=== PATIENT | male | born 1975 | race Caucasian/White ===

== ENCOUNTER 2018-06-04 16:51 | Inpatient (IN) | payer MEDICAID ==
[~2018-06-04] VITALS: Ht 175.3 cm; Wt 89.9 kg
[2018-06-05] MEDS: ZOLPIDEM TARTRATE 10 MG TABLET PO PRN ×2 (00:21→20:22)
[2018-06-05] MEDS: HALOPERIDOL 5 MG TABLET PO PRN ×2 (00:21→16:48)
[2018-06-05] MEDS: LORazepam 2 MG TABLET PO PRN ×3 (00:21→16:48)
[2018-06-05 00:46] VITALS: BP 102/76
[2018-06-05 08:06] VITALS: BP 106/72
[2018-06-05 08:31] LABS: BASOPHILS % (AUTO) 0.4 % (0.0-2.0); HEMATOCRIT 49.1 % (41-53); HEMOGLOBIN 17.4 g/dL (13.5-17.5); LYMPHOCYTES # (AUTO) 1.5 K/uL (1.0-4.8); LYMPHOCYTES % (AUTO) 30.7 % (22.0-44.0); MEAN CORPUSCULAR HEMOGLOBIN 33.8 pg (26.0-34.0); MEAN CORPUSCULAR HGB CONC 35.5 G/dL (31.0-37.0); MEAN CORPUSCULAR VOLUME 95 fL (80-100); MONOCYTES # (AUTO) 0.4 K/uL (0.1-1.0); MONOCYTES % (AUTO) 8.9 % (2.0-9.0); NEUTROPHILS # (AUTO) 2.8 K/uL (1.8-7.7); PLATELET COUNT (AUTO) 160 K/uL (150-450); RED BLOOD CELL COUNT(AUTO) 5.15 MIL/uL (4.50-5.90); RED CELL DISTRIBUTION WIDTH 12.3 % (11.5-14.5)
[2018-06-05 08:49] LABS: HEMOGLOBIN A1C 4.9 % (4.5-6.2)
[2018-06-05 09:06] LABS: ALANINE AMINOTRANSFERASE 29 U/L (12-78); ALKALINE PHOSPHATASE 76 U/L (46-116); ANION GAP 9 mmol/L (8-16); ASPARTATE AMINOTRANSFERASE 17 U/L (15-37); BILIRUBIN,TOTAL 0.5 mg/dL (0.1-1.0); CALCIUM, TOTAL 8.6 mg/dL (8.8-10.5); CARBON DIOXIDE 27 mmol/L (22-29); CHLORIDE 108 mmol/L (98-107); CHOL/HDL RATIO 6.1 (4.2-7.3); CHOLESTEROL 196 mg/dL (131-200); CREATININE 1.13 mg/dL (0.60-1.30); FREE T4 (FREE THYROXINE) 0.81 ng/dL (0.76-1.46); GLOMERULAR FILTR. RATE CALC > 60 mL/min (>60); GLUCOSE,RANDOM 92 mg/dL (70-110); HDL CHOLESTEROL 32 mg/dL (40-60); LDL CHOL (CALC.) 145 mg/dL (0-130); POTASSIUM 4.1 mmol/L (3.5-5.1); SODIUM SERUM 144 mmol/L (136-145); THYROID STIMULATING HORMONE 1.17 uIU/mL (0.36-3.74); TOTAL PROTEIN, SERUM 6.9 g/dL (6.4-8.2); TRIGLYCERIDES 94 mg/dL (15-150); UREA NITROGEN, BLOOD 22 mg/dL (7-18)
[2018-06-05 16:00] VITALS: BP 107/63
[2018-06-05] MEDS ORDERED: OLAN7.5T2 PO (17:09)
[2018-06-05] MEDS ORDERED: TOPI100T37 PO (17:09)
[2018-06-05] MEDS ORDERED: VENL-68 PO (17:09)
[2018-06-05] MEDS ORDERED: BUSP15 PO (17:09)
[2018-06-05] MEDS ORDERED: OMEPRAZOLE 20 MG CAPSULE PO PRN (20:00)
[2018-06-05] MEDS ORDERED: BENZOCAINE/MENTHOL LOZENGE MM PRN (20:00)
[2018-06-05] MEDS ORDERED: PETROLATUM,WHITE 71 GM JELLY TP PRN (20:00)
[2018-06-05] MEDS ORDERED: MAG HYDROX/AL HYDROX/SIMETH ES 30 ML SUSPENSION UDCUP PO PRN (20:00)
[2018-06-05] MEDS ORDERED: ALBUTEROL SULFATE HFA 90 MCG/PUFF 8 GM INHALER IH PRN (20:00)
[2018-06-05] MEDS ORDERED: IBUPROFEN 600 MG TABLET PO PRN (20:00)
[2018-06-05] MEDS ORDERED: BACITRACIN 28.4 GM OINTMENT TP PRN (20:00)
[2018-06-05] MEDS ORDERED: CloNIDine HCL 0.1 MG TABLET PO PRN (20:00)
[2018-06-05] MEDS ORDERED: DOCUSATE SODIUM 100 MG CAPSULE PO PRN (20:00)
[2018-06-05] MEDS ORDERED: MAGNESIUM HYDROXIDE SUSPENSION 30 ML UDCUP PO PRN (20:00)
[2018-06-05] MEDS ORDERED: ONDANSETRON HCL 4 MG TABLET PO PRN (20:00)
[2018-06-05] MEDS ORDERED: LOPERAMIDE HCL 2 MG CAPSULE PO PRN (20:00)
[2018-06-05] MEDS ORDERED: ACETAMINOPHEN 325 MG TABLET PO PRN (20:00)
[2018-06-05] MEDS ORDERED: OLANZapine 7.5 MG TABLET PO SCH (21:00)
[2018-06-06 06:21] VITALS: BP 112/72
[2018-06-06] MEDS: LORazepam 2 MG TABLET PO PRN ×4 (07:01→20:55)
[2018-06-06] MEDS: HALOPERIDOL 5 MG TABLET PO PRN ×2 (07:01→16:49)
[2018-06-06 09:02] VITALS: BP 93/63
[2018-06-06] MEDS: BusPIRone HCL 15 MG TABLET PO SCH (16:49)
[2018-06-06 17:16] VITALS: BP 108/66
[2018-06-06] MEDS: ZOLPIDEM TARTRATE 10 MG TABLET PO PRN (20:55)
[2018-06-06] MEDS: TOPIRAMATE 100 MG TABLET PO SCH (20:55)
[2018-06-06] MEDS: OLANZapine 7.5 MG TABLET PO SCH (20:55)
[2018-06-07 05:51] VITALS: BP 103/62
[2018-06-07 08:06] VITALS: BP 101/61
[2018-06-07] MEDS: BusPIRone HCL 15 MG TABLET PO SCH ×3 (08:19→16:37)
[2018-06-07] MEDS: HALOPERIDOL 5 MG TABLET PO PRN (08:20)
[2018-06-07] MEDS: VENLAFAXINE HCL 150 MG ER CAPSULE PO SCH (08:20)
[2018-06-07] MEDS: LORazepam 2 MG TABLET PO PRN ×2 (08:20→16:37)
[2018-06-07 16:53] VITALS: BP 100/66
[2018-06-07] MEDS: OLANZapine 7.5 MG TABLET PO SCH (20:41)
[2018-06-07] MEDS: TOPIRAMATE 100 MG TABLET PO SCH (20:41)
[2018-06-08 06:20] VITALS: BP 101/65
[2018-06-08 08:07] VITALS: BP 106/67
[2018-06-08] MEDS: BusPIRone HCL 15 MG TABLET PO SCH ×2 (09:12→12:14)
[2018-06-08] MEDS: VENLAFAXINE HCL 150 MG ER CAPSULE PO SCH (09:12)
[2018-06-08] MEDS: HALOPERIDOL 5 MG TABLET PO PRN (11:00)
[2018-06-08] MEDS: LORazepam 2 MG TABLET PO PRN (11:00)
== END 2018-06-08 14:15 | disposition home or self-care (01) | DRG 753 ==
LOC: B3A 22:38
PROVIDERS: ADMIT Psychiatry & Neurology Psychiatry; ATTEND Psychiatry & Neurology Psychiatry
DX: F31.9 Bipolar disorder, unspecified (principal); E83.51 Hypocalcemia; F22 Delusional disorders; G47.00 Insomnia, unspecified; K59.00 Constipation, unspecified; F15.90 Other stimulant use, unspecified, uncomplicated
CPT/HCPCS: 83036; 84439; 84443